=== PATIENT | female | born 1995 | race Caucasian/White ===

== ENCOUNTER 2017-12-19 14:45 | Emergency (ER) | payer MEDICAID, OTHER ==
[~2017-12-19 14:45] MED LIST: CETI10 PO; HYDRO2.5%T TOP; IBUP600T26 PO
--- NOTE | 2017-12-19 15:22 | PD ---
HPI Chief Complaint blood in urine Date Seen: Dec 19, 2017 Time Seen: 15:26 (Michael Pérez MD, R1) Travel History International Travel<30 Days: No Contact w/Intl Traveler<30Days: No (Michael Pérez MD, R1) History of Present Illness HPI Patient is a 22-year-old G one P0 at 26/5 weeks gestation presenting to OB triage with complaints of blood in her urine first noticed this morning. No blood clots were seen in the urine and no similar episodes has occurred in the past. patient also reports that this morning started having intermittent right lower abdominal cramping pain, rates 3/10, currently has no pain. Denies any history of kidney stones, recent illness, sick contacts, dysuria, dizziness, loss of fluid, vaginal bleeding, fever, chills, cp or SOB. Endorses movement and nausea. Of note [place]. Weeks Gestation: 26 Para: 0 : 1 (Michael Pérez MD, R1) History Past Medical History Medical History: Denies Significant Hx (Michael Pérez MD, R1) Obstetric History Obstetric History no complications with this thus far Patient reports she did not have a Pap smear done as part of her care (Michael Pérez MD, R1) Past Surgical History Surgical History: No Previous Surgery (Michael Pérez MD, R1) Family History Narrative Family History Grandparents-diabetes (Michael Pérez MD, R1) Social History Alcohol Use: No Tobacco Use: No Substance Abuse: No (Michael Pérez MD, R1) Allergies-Medications (Allergen,Severity, Reaction): Coded Allergies: No Known Allergies (Verified , 03/10/14) Home Meds Active Scripts Nitrofurantoin Macrocrystal (Nitrofurantoin Macrocrystal) 100 Mg Cap, 100 MG PO BID for Infection for 5 Days, #10 CAP 0 Refills Prov:Michael Pérez MD, R1 12/19/17 Ibuprofen (Ibuprofen) 600 Mg Tab, 600 MG PO TID Y for PAIN for 10 Days, TAB Prov:Apolinar Bonilla DO 08/28/14 Cetirizine HCl (Zyrtec 10 Mg Tab) 10 Mg Tab, 10 MG PO HS, #30 TAB Prov:Megan Beauchamp MD 03/10/14 Hydrocortisone (Hydrocortisone) 30 Gm Cr, 2.5 % TOP BID, #1 TUBE Prov:Megan Beauchamp MD 03/10/14 Review of Systems Except as stated in HPI: all other systems reviewed are Neg (per HPI) (Michael Pérez MD, R1) Physical Exam Narrative GENERAL: Well-nourished, well-developed patient. SKIN: Warm and dry. HEAD: Normocephalic and atraumatic. EYES: No scleral icterus. No injection or drainage. ENT: No nasal drainage noted. Mucous membranes pink. Airway patent. NECK: Supple, trachea midline. No JVD. CARDIOVASCULAR: Regular rate and rhythm without murmurs, gallops, or rubs. RESPIRATORY: Breath sounds equal bilaterally. No accessory muscle use. ABDOMEN/GI: Abdomen soft, mild tenderness to palpation along Right Lower abd, bowel sounds present, no rebound, no guarding Gravid to 26 weeks size GENITOURINARY: External Genitalia: intact and normal in appearance Cervix: [-] Dilatation: [-] Effacement: [-] Station: [-] Presentation: [-] Membranes: intact Uterine Contractions: none FHT's: Category: 1 Baseline: 140 Reactive: yes Variability: moderate Decels: none EXTREMITIES: No cyanosis or edema. BACK: Nontender without obvious deformity. Mild Right CVA tenderness. NEUROLOGICAL: Awake and alert. Motor and sensory grossly within normal limits. Five out of 5 muscle strength in all muscle groups. Normal speech. (Michael Pérez MD, R1) Data Data Vital Signs Reviewed: Yes (Michael Pérez MD, R1) MDM Plan Patient is a 22-year-old G one P0 at 26/5 weeks gestation presenting to OB triage with complaints of gross hematuria that started this morning associated with right lower abdominal pain and mild right CVA tenderness on exam. IUP at 26/5 weeks gestation Encourage oral hydration VS WNL Category 1, NST reassuring Follow-up: UA- blood in urine (urine RBC 140), no nitrites or leuk esterase f/u Ucx, CBC, BMP Patient ok to be discharge home nitrofurantoin ppx for suspected UTI Patient advised to f/u with OB doctor and continue with oral hydration SDW Dr. Herring (Michael Pérez MD, R1) Attending Attestation Patient seen and evaluated with resident under direct supervision, agree with assessment and plan. (Marino Trent MD) Diagnosis Diagnosis: Primary Impression: 26 weeks gestation of Additional Impression: UTI (urinary tract infection) Disposition: 01 DISCHARGE HOME Condition: Stable Scripts Nitrofurantoin Macrocrystal (Nitrofurantoin Macrocrystal) 100 Mg Cap 100 MG PO BID for Infection for 5 Days, #10 CAP 0 Refills Prov: Michael Pérez MD, R1 12/19/17 Michael Pérez MD, R1 Dec 19, 2017 15:22 Marino Trent MD Dec 21, 2017 16:34
[2017-12-19 15:49] LABS: BACTERIA, URINE OCC /hpf; BILIRUBIN, URINE NEG (NEG); BLOOD, URINE LARGE (NEG); GLUCOSE,URINE NEG (NEG); HYALINE CAST, URINE 4 /lpf (RARE); KETONE, URINE NEG (NEG); NITRITE,URINE NEG (NEG); SQUAMOUS EPITHELIAL CELL URINE 2 /hpf (0-5); URINE COLOR YELLOW (YELLW/STRAW); URINE LEUKOCYTE ESTERASE TRACE (NEG)
[2017-12-19 16:28] LABS: AUTOMATED NEUTROPHIL # 6.9 TH/MM3 (1.8-7.7); BASOPHIL # 0.1 TH/MM3 (0-0.2); BASOPHIL % 0.7 % (0.0-2.0); EOSINOPHIL # 0.1 TH/MM3 (0-0.4); EOSINOPHIL % 1.3 % (0.0-4.0); HEMATOCRIT 31.1 % (35.0-46.0); HEMOGLOBIN 10.5 GM/DL (11.6-15.3); LYMPH % 18.3 % (9.0-44.0); LYMPHOCYTE # 1.7 TH/MM3 (1.0-4.8); MEAN CELL VOLUME 93.6 FL (80.0-100.0); MEAN CORPUSCULAR HEMOGLOBIN 31.5 PG (27.0-34.0); MEAN CORPUSCULAR HGB CONC 33.7 % (32.0-36.0); MEAN PLATELET VOLUME 7.4 FL (7.0-11.0); MONO % 6.4 % (0.0-8.0); MONOCYTE # 0.6 TH/MM3 (0-0.9); NEUT % 73.3 % (16.0-70.0); PLATELET COUNT 322 TH/MM3 (150-450); RED BLOOD COUNT 3.32 MIL/MM3 (4.00-5.30); RED CELL DISTRIBUTION WIDTH 13.1 % (11.6-17.2); WHITE BLOOD COUNT 9.4 TH/MM3 (4.0-11.0)
[2017-12-19] MEDS ORDERED: NITR1CAP36 PO (16:33)
[2017-12-19 16:58] LABS: BICARBONATE 22.3 MEQ/L (21.0-32.0); CALCIUM 8.5 MG/DL (8.5-10.1); CREATININE 0.45 MG/DL (0.50-1.00)
== END 2017-12-19 17:07 | disposition home or self-care (01) ==
LOC: HOBED 14:45
DX: O23.42 Unspecified infection of urinary tract in pregnancy, second trimester (principal); Z3A.26 26 weeks gestation of pregnancy
CPT/HCPCS: 80048; 81001; 85025; 87086; 99283